=== PATIENT | female | born 1940 | race Two or more races ===

== ENCOUNTER 2018-07-07 10:22 | Outpatient (CLI) | payer OTHER ==
[~2018-07-07 10:22] MED LIST: ENALAPRIL MALEA20 MG; VERAPAMIL ER240 MG
== END 2018-07-07 10:29 | disposition home or self-care (01) ==
LOC: RAD 10:22
DX: J80 Acute respiratory distress syndrome (principal)

== ENCOUNTER 2019-01-07 10:38 | Outpatient (CLI) | payer OTHER | END 2019-01-07 10:45 | disposition home or self-care (01) | LOC: RAD 501 10:38 | DX: J45.998 Other asthma (principal) ==

== ENCOUNTER 2019-03-16 16:50 | Emergency (ER) | payer OTHER ==
[~2019-03-16] VITALS: Ht 134.6 cm; Wt 59.0 kg
== END 2019-03-16 20:04 | disposition home or self-care (01) ==
LOC: ER 16:50
DX: S01.521A Laceration with foreign body of lip, initial encounter (principal); S50.11XA Contusion of right forearm, initial encounter; W26.8XXA Contact with other sharp object(s), not elsewhere classified, initial encounter; Y93.89 Activity, other specified; Y92.017 Garden or yard in single-family (private) house as the place of occurrence of the external cause; Y99.8 Other external cause status

== ENCOUNTER 2019-05-12 09:10 | Outpatient (CLI) | payer OTHER | END 2019-05-12 09:15 | disposition home or self-care (01) | LOC: NUCLEAR 09:10 | DX: M81.0 Age-related osteoporosis without current pathological fracture (principal) ==

== ENCOUNTER 2019-07-01 18:18 | Emergency (ER) | payer OTHER ==
[~2019-07-01] VITALS: Ht 147.3 cm; Wt 59.0 kg
[2019-07-01] MEDS ORDERED: MECLIZINE HCL25 MG PO (22:17)
== END 2019-07-01 22:56 | disposition home or self-care (01) ==
LOC: ER 18:18
DX: R42 Dizziness and giddiness (principal)

== ENCOUNTER 2019-12-13 06:57 | Emergency (ER) | payer OTHER ==
[~2019-12-13] VITALS: Ht 121.9 cm; Wt 54.4 kg
[~2019-12-13 06:57] MED LIST changes: +MECLIZINE HCL25 MG PO
== END 2019-12-13 09:11 | disposition home or self-care (01) ==
LOC: ER 06:57
DX: M54.5 Low back pain (principal)

== ENCOUNTER 2020-05-22 11:54 | Emergency (ER) | payer OTHER ==
[~2020-05-22] VITALS: Ht 154.9 cm; Wt 58.5 kg
== END 2020-05-22 14:25 | disposition home or self-care (01) ==
LOC: ER 11:54
DX: M54.2 Cervicalgia (principal); R51 Headache; Z03.818 Encounter for observation for suspected exposure to other biological agents ruled out

== ENCOUNTER 2020-06-16 10:21 | Emergency (ER) | payer OTHER ==
[~2020-06-16] VITALS: Ht 152.4 cm; Wt 54.4 kg
== END 2020-06-16 13:17 | disposition home or self-care (01) ==
LOC: ER 10:21
DX: M54.2 Cervicalgia (principal)